=== PATIENT | female | born 2005 | race Asian ===

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

== ENCOUNTER 2023-04-01 10:45 | Emergency (ER) | payer MEDICAID ==
[~2023-04-01] VITALS: Ht 149.9 cm; Wt 45.5 kg
[2023-04-01 10:51] VITALS: TEMP 98
[2023-04-01 12:15] LABS: APPEARANCE,URINE HAZY (CLEAR); BILIRUBIN,URINE NEGATIVE (NEGATIVE); GLUCOSE, URINE (UA) NEGATIVE (NEGATIVE); KETONES,URINE 80-100 mg/dL (NEGATIVE); LEUKOCYTE ESTERASE ,URINE LARGE (NEGATIVE); NITRATE,URINE NEGATIVE (NEGATIVE); OCCULT BLOOD,URINE LARGE (NEGATIVE); PH,URINE 7.5 (5.0-8.0); PROTEIN,URINE 100-200,SEE CONFIRM mg/dL (NEGATIVE); SPECIFIC GRAVITIY, URINE 1.021 (1.003-1.030); UROBILINOGEN,URINE <=1.0 mg/dL (<=1.0)
[2023-04-01 12:28] LABS: SULFOSALICYLIC ACID,URINE 2+ (Negative)
[2023-04-01 12:29] LABS: BACTERIA,URINE Many /HPF (None Seen); RBC,URINE >100 /HPF (0-2); SQUAMOUS EPITHELIAL CELL,UR Few /LPF (None Seen); WBC,URINE 51-100 /HPF (0-5)
[2023-04-01 12:40] VITALS: BP 115/79; PULSE 89; RESP 18
[2023-04-01] MEDS ORDERED: PHEN-846 PO (13:13)
[2023-04-01] MEDS ORDERED: CEPH-558 PO (13:13)
[2023-04-01] MEDS ORDERED: CEPHALEXIN MONOHYDRATE 500 MG CAPSULE PO ONE (13:15)
[2023-04-01] MEDS ORDERED: PHENAZOPYRIDINE HCL 100 MG TABLET PO ONE (13:15)
== END 2023-04-01 13:36 | disposition home or self-care (01) ==
LOC: EMS 10:48
DX: N39.0 Urinary tract infection, site not specified (principal)
CPT/HCPCS: 81001; 81002; 84703; 87086; 87186; 99283

== ENCOUNTER 2023-11-02 02:07 | Emergency (ER) | payer MEDICAID ==
[~2023-11-02] VITALS: Ht 149.9 cm; Wt 36.4 kg
[~2023-11-02 02:07] MED LIST changes: -BENZ-227 PO; +CEPH-558 PO; +PHEN-846 PO
[2023-11-02 02:18] VITALS: BP 121/93; PULSE 118; RESP 18; TEMP 98.2
[2023-11-02 02:49] LABS: COVID AG,FIA SOURCE NASAL SWAB
[2023-11-02 03:10] LABS: APPEARANCE,URINE CLEAR (CLEAR); BILIRUBIN,URINE NEGATIVE (NEGATIVE); COLOR,URINE YELLOW (YELLOW); GLUCOSE, URINE (UA) NEGATIVE (NEGATIVE); KETONES,URINE 40-60 mg/dL (NEGATIVE); LEUKOCYTE ESTERASE ,URINE NEGATIVE (NEGATIVE); NITRATE,URINE NEGATIVE (NEGATIVE); OCCULT BLOOD,URINE NEGATIVE (NEGATIVE); PH,URINE 5.5 (5.0-8.0); PROTEIN,URINE TRACE mg/dL (NEGATIVE); SPECIFIC GRAVITIY, URINE 1.024 (1.003-1.030); UROBILINOGEN,URINE <=1.0 mg/dL (<=1.0)
[2023-11-02 03:16] LABS: HCG,QUAL URINE NEGATIVE (NEGATIVE)
[2023-11-02 03:26] LABS: INFLUENZA TYPE B NEGATIVE FOR TYPE B (NEGATIVE); SARS-COV2 (COVID) ANTIGEN,FIA Negative (Negative)
[2023-11-02 04:05] LABS: INFLUENZA TYPE A POSITIVE FOR TYPE A (NEGATIVE)
[2023-11-02] MEDS ORDERED: OSEL75 PO (04:19)
== END 2023-11-02 04:53 | disposition home or self-care (01) ==
LOC: EMS 02:08
DX: J10.1 Influenza due to other identified influenza virus with other respiratory manifestations (principal); Z20.822 Contact with and (suspected) exposure to COVID-19
CPT/HCPCS: 81003; 84703; 87804; 99283

== ENCOUNTER 2023-11-03 21:31 | Emergency (ER) | payer MEDICAID ==
[~2023-11-03] VITALS: Ht 149.9 cm; Wt 36.4 kg
[~2023-11-03 21:31] MED LIST changes: +OSEL75 PO
[2023-11-03] MEDS ORDERED: IBUPROFEN 600 MG TABLET PO ONE (22:15)
[2023-11-03] MEDS ORDERED: ACETAMINOPHEN 500 MG TABLET PO ONE (22:15)
[2023-11-04] MEDS ORDERED: ONDANSETRON HCL 4 MG/2 ML VIAL IVP ONE (00:30)
[2023-11-04] MEDS ORDERED: SODIUM CHLORIDE 0.9% 1,000 ML IV ONE (00:30)
[2023-11-04 00:55] LABS: BASOPHILS % (AUTO) 0.6 % (0.0-2.0); EOSINOPHILS % (AUTO) 0.2 % (1.0-6.0); HEMATOCRIT 35.9 % (36-46); HEMOGLOBIN 11.8 g/dL (12.0-16.0); LYMPHOCYTES # (AUTO) 1.3 K/uL (1.0-4.8); MEAN CORPUSCULAR HEMOGLOBIN 26.4 pg (26.0-34.0); MEAN CORPUSCULAR HGB CONC 32.8 G/dL (31.0-37.0); MEAN CORPUSCULAR VOLUME 80 fL (80-100); MONOCYTES # (AUTO) 0.4 K/uL (0.1-1.0); NEUTROPHILS # (AUTO) 0.6 K/uL (1.8-7.7); NEUTROPHILS % (AUTO) 25.2 % (40.0-70.0); PLATELET COUNT (AUTO) 186 K/uL (150-450); RED BLOOD CELL COUNT(AUTO) 4.46 MIL/uL (4.00-5.20); RED CELL DISTRIBUTION WIDTH 12.9 % (11.5-14.5); WHITE BLOOD COUNT (AUTO) 2.4 K/uL (4.5-11.0)
[2023-11-04 01:04] LABS: ANION GAP 11 mmol/L (8-16); CALCIUM, TOTAL 8.2 mg/dL (8.8-10.5); CARBON DIOXIDE 24 mmol/L (22-29); CHLORIDE 98 mmol/L (98-107); CREATININE 0.48 mg/dL (0.60-1.30); GLOMERULAR FILTR. RATE CALC > 60 mL/min (>60); GLUCOSE,RANDOM 86 mg/dL (70-110); POTASSIUM 3.3 mmol/L (3.5-5.1); SODIUM SERUM 133 mmol/L (136-145); UREA NITROGEN, BLOOD 11 mg/dL (7-18)
[2023-11-04 01:15] VITALS: BP 106/68; PULSE 88; RESP 18; TEMP 95
[2023-11-04] MEDS ORDERED: IBUP-45 PO (01:36)
[2023-11-04] MEDS ORDERED: ONDA-104 PO (01:36)
[2023-11-04] MEDS ORDERED: ACET-2247 PO (01:36)
== END 2023-11-04 01:55 | disposition home or self-care (01) ==
LOC: EMS 21:33
DX: J10.1 Influenza due to other identified influenza virus with other respiratory manifestations (principal); R10.9 Unspecified abdominal pain; R11.10 Vomiting, unspecified
CPT/HCPCS: 99283; 80048; 84703; 85025; 36415; 81025; 96374; 96361; J2405; J7030